=== PATIENT | male | born 1955 | race Caucasian/White ===

== ENCOUNTER → 2016-12-24 | Outpatient (CLI) | payer MEDICARE ==
[~2016-12-24] MED LIST: AMLO5TAB2 PO; FEXO60TA PO; GABA300C5 PO; HYDR25TA5 PO; LOVA1TAB47 PO; MS C60TA4 PO; MSIR15 PO; OXYC-360 PO; PRAV40TA2 PO; PROT40TA PO; SERT-129 PO; TEST2.5G TOPICAL; TESTOSTERONE CREAM TOP; ZITH500T PO
[2016-12-24 10:24] LABS: APTT (PATIENT) 29.2 SEC (24.3-30.1); PROTHROMBIN TIME - PATIENT 11.3 SEC (9.8-11.6)
[2016-12-24 10:27] LABS: BLOOD, URINE NEG (NEG); COMMENT (UR) CULT NOT INDICATED; CULTURE IF INDICATED CULT NOT INDICATED; GLUCOSE,URINE NEG (NEG); KETONE, URINE NEG (NEG); NITRITE,URINE NEG (NEG); PH, URINE 6.5 (5.0-8.5); URINE COLOR YELLOW (YELLW/STRAW)
[2016-12-24 10:38] LABS: HEMATOCRIT 58.5 % (39.0-51.0); MEAN CELL VOLUME 89.3 FL (80.0-100.0); MEAN CORPUSCULAR HGB CONC 33.6 % (32.0-36.0); PLATELET COUNT 187 TH/MM3 (150-450); RED BLOOD COUNT 6.56 MIL/MM3 (4.50-5.90); RED CELL DISTRIBUTION WIDTH 14.5 % (11.6-17.2); REVIEW FLAG FINAL; WHITE BLOOD COUNT 8.4 TH/MM3 (4.0-11.0)
[2016-12-24 12:21] LABS: BICARBONATE 31.2 MEQ/L (21.0-32.0); POTASSIUM 3.6 MEQ/L (3.5-5.1)
--- NOTE | 2016-12-28 09:15 | EKG ---
Date Performed: 12/24/2016 Time Performed: 09:55:56 PTAGE: 61 years EKG: Sinus rhythm BORDERLINE LEFT AXIS DEVIATION BORDERLINE ECG Compared to prior tracing no significant change DOCTOR: Stephane Bolton Interpretating Date/Time 12/28/2016 09:12:52
== END ==
LOC: CPRE 09:04
PROVIDERS: ATTEND Orthopaedic Surgery
DX: Z01.812 Encounter for preprocedural laboratory examination (principal); Z01.810 Encounter for preprocedural cardiovascular examination; M17.11 Unilateral primary osteoarthritis, right knee; I10 Essential (primary) hypertension; M79.609 Pain in unspecified limb; R94.31 Abnormal electrocardiogram [ECG] [EKG]
CPT/HCPCS: 36415; 80048; 81001; 85027; 85610; 85730; 93005

== ENCOUNTER → 2017-06-16 | Outpatient (CLI) | payer MEDICARE ==
[~2017-06-16] MED LIST changes: +ASPI81TA23 PO; -FEXO60TA PO; -LOVA1TAB47 PO; -MS C60TA4 PO; -OXYC-360 PO; -TESTOSTERONE CREAM TOP; -ZITH500T PO
== END ==
LOC: CPRE 08:49
PROVIDERS: ATTEND Orthopaedic Surgery
DX: M17.11 Unilateral primary osteoarthritis, right knee (principal); M79.609 Pain in unspecified limb; I10 Essential (primary) hypertension

== ENCOUNTER 2017-07-05 05:05 | Inpatient (IN) | payer MEDICARE ==
[~2017-07-05] VITALS: Ht 172.7 cm; Wt 97.3 kg
[2017-07-05] MEDS ORDERED: CHLORHEXIDINE GLUCONATE 4% SOLN 120 ML BTL TOPICAL SCH (05:30)
[2017-07-05] MEDS ORDERED: EXPAREL PERI-ARTICULAR INJECTION (TOTAL VOL. 100 ML) P-ARTICULR SCH ×2 (05:30)
[2017-07-05] MEDS ORDERED: TRANEXAMIC ACID INJ 975 MG in SODIUM CHLORIDE 0.9% INJ 100 ML IV SCH ×4 (05:30)
[2017-07-05] MEDS ORDERED: LACTATED RINGER'S 1000 ML IV PRN (05:30)
[2017-07-05] MEDS ORDERED: METOPROLOL TARTRATE 25 MG TAB PO PRN (05:30)
[2017-07-05] MEDS ORDERED: CHLORHEXIDINE GLUCONATE 2 % 1 PACK (2 CLOTHS) TOPICAL PRN (05:30)
[2017-07-05] MEDS ORDERED: SODIUM CHLORID 0.9% 500 ML IV PRN (05:30)
[2017-07-05] MEDS ORDERED: POVIDONE IODINE 5% (ANTISEPSIS KIT) 4 APPLICATIONS EACH NARE PRN (05:30)
[2017-07-05] MEDS ORDERED: ceFAZolin 2 GM PREMIX 50 ML IV SCH (05:30)
[2017-07-05] MEDS ORDERED: FAT EMULSION 20% INJ 0 ML ONE (05:40)
[2017-07-05 05:57] VITALS: PULSE 87
[2017-07-05] MEDS ORDERED: ACETAMINOPHEN 1000 MG/100 ML 100 ML IV ONE (06:26)
[2017-07-05] MEDS ORDERED: GENTAMICIN SULFATE 80 MG/2 ML VIAL ONE (06:26)
[2017-07-05] MEDS ORDERED: FAMOTIDINE 20 MG/2 ML VIAL ONE (06:26)
[2017-07-05] MEDS ORDERED: MIDAZOLAM HCL 5 MG/5 ML VIAL ONE (06:35)
[2017-07-05] MEDS ORDERED: BUPIVACAINE LIPOSOME PF 1.3% 20 ML VIAL ONE (06:36)
[2017-07-05] MEDS ORDERED: ZOLPIDEM TARTRATE 5 MG TAB PO PRN (06:45)
[2017-07-05] MEDS ORDERED: MAGNESIUM HYDROXIDE SUSP 30 ML CUP PO PRN (06:45)
[2017-07-05] MEDS ORDERED: MORPHINE SULFATE 15 MG TAB PO PRN (06:45)
--- NOTE | 2017-07-05 08:56 | PD.OP ---
Operative Report Date of Surgery: Jul 05, 2017 Preoperative Diagnosis: (1) Primary osteoarthritis of right knee Postoperative Diagnosis: (1) Primary osteoarthritis of right knee Procedure: Right total knee arthroplasty using [place] Triathlon prosthesis (uncemented) Anesthesia: General endotracheal with supplemental adductor canal block regional and local with Exparel Surgeon: Valentín Webber M.D. Structures Assembler(s): JACINTA Sheth Operation and Findings: Indications and Findings: This 62-year-old man has had a 9 year history of right knee pain with more recent increase in pain. This has been over the past 6 months. Previously he had arthroscopic surgery of the knee. More recent treatment has included analgesics, anti-inflammatory agents, activity modification, exercises, use of a brace and ambulatory aids. In spite of this, he has worsened so that his ambulation tolerance is very show short distance. His physical findings included severe medial pain and tenderness with crepitation on range of motion and medial laxity. There is some degenerative varum. Radiographic findings showed loss of articular cartilage to virtually [id number] in the medial compartment with lateral meniscus calcification and changes in the articular cartilage in the patellofemoral joint. Operative findings: There was severe osteoarthritis in the medial compartment with loss of articular cartilage to bone on bone, osteophytes, eburnation. There is also changes in the patellofemoral compartment which would be considered fairly significant with areas of cartilaginous delamination and irregularity. The lateral compartment had some minor changes. The prosthesis used was a [place] Triathlon prosthesis. The femur was a size 6 cruciate retaining uncemented. The tibial baseplate was a size 6 Tritanium with a 13 mm cruciate retaining X3 polyethylene spacer. The patella was a size 38 mm asymmetric Tritanium backed. The patient was brought to the clean-air operating suite after an adductor canal block regional had been performed. A spinal anesthetic was administered. The position was supine with a small bolster under the hip on the operative side. A pneumatic tourniquet was applied to the upper thigh. The lower extremity was then prepped with alcohol, Hibiclens and ChloraPrep and draped in the usual manner with the knee draped free. An appropriate timeout procedure was carried out. An incision was made from about 3 fingerbreadths above the superior medial pole of patella down the tibial tubercle on the medial side. The incision was deepened through the subcutaneous tissue to the retinacular structures which were exposed medially and laterally. A medial retinacular incision was then made from the superior middle pole of patella down the tibial tubercle and up into the quadriceps tendon splitting it longitudinally and the medial one third. The patella was reflected. The infrapatellar fat pad was debulked. The anterior cruciate ligament was excised. Medial and lateral meniscectomies were initiated. A fenestration was made in the distal femur for the intramedullary referencing guide. A fenestration was made in the proximal tibia for the intramedullary referencing guide. The distal femoral cutting guide and jig were then assembled for a 5, 8 mm cut. When this was in position, the cutting block was stabilized with pins. The jig was removed. The distal femoral cut was then completed with the oscillating saw. The sizing guide was then positioned in place along Whitesides line and the epicondylar axis and stabilized with pins. The femoral size was then determined with the sizing guide. The 4-in-1 cutting block was then positioned in place. Anterior and posterior cuts were made followed by posterior and anterior chamfer cuts taking care to prevent injury to ligamentous structures. Osteophytes were then trimmed from the distal femur. A bone plug was then placed into the fenestration of the distal femur. The proximal tibia was then exposed. The medial and lateral meniscectomies were completed. The proximal tibial cutting guide was then positioned in place and stabilized with a pin for rotation. The depth of cut was then verified with a stylus referencing from the predetermined side. The cutting block was stabilized with pins. The jig was removed. The depth of cut was then verified and adjusted appropriately with the use of the spacer block. The proximal tibial cut was then made with the oscillating saw taking care to prevent injury to neurovascular and ligamentous structures. Proximal tibial bone was removed. Local anesthetic was administered with Exparel in the posterior capsule. The tibial baseplate trial was then positioned in place. After verifying the appropriate size, the base plate trial was positioned in place along with its spacer. The trial femoral component was then impacted into place. The alignment was checked. The trial tibial baseplate was then pinned in place on the tibia. Attention was directed to the patella. The patella drill guide was positioned in place for the appropriate sized patella. Patellar drilling was then carried out. The trial patella was positioned in place. The knee was taken through a range of motion which was easily 0 extension to 145 of flexion. The patella trial was removed. The femoral drill holes were made. The femoral trial prosthesis was removed. The tibial spacer was removed. A bone plug was placed into the proximal tibia. The tibial punch was impacted through the proximal tibial punch guide. This was all removed followed by placement of the tibial drill guide. The tibial drill holes were then made. The guide was removed. The cut ends of bone were then cleaned with pulse lavage. The tibial baseplate was then impacted into place and seated appropriately. The spacer was inserted. The the femoral component was then impacted into place and seated appropriately. The patella component was then seated with the patellar vice and tightened appropriately. The knee was taken through a range of motion which was comparable to the previous range of motion with excellent stability in flexion and extension and appropriate patellofemoral tracking. The remainder of the Exparel was then injected throughout the knee as a local anesthetic. Drains were brought out the superior lateral aspect of the suprapatellar pouch. Wound closure then commenced using 0 Vicryl interrupted [id number] sutures for the capsular and fascial structures, 2-0 Vicryl interrupted simple sutures with buried knots for the subcutaneous tissues and 4- 0 Monocryl, tenuous subcuticular closure for the skin. The wound was then dressed with Steri-Strips followed by Optifoam silver impregnated dressing. Sterile soft roll with a cooling pad and Deepak bandage from the base of the toes to mid thigh were then applied. Patient was then transferred from the operating room to the recovery room in satisfactory condition having tolerated procedure well. Counts are correct. Specimens: None. Estimated blood loss: 150 mL Tess Webber MD ([place]) Jul 05, 2017 08:56
--- NOTE | 2017-07-05 08:57 | HHI.FF ---
Face to Face Verification Diagnosis: (1) Status post total right knee replacement Physical Therapy Gait training Knee: Total knee, Protocol: Right, Full weight bearing Right LE Weight Bearing: WB as tolerated Right LE Range of Motion: Active ROM (active, active-assisted and passive range of motion. Range of motion goal is 0 extension to 135 of flexion. Range of motion achieved in the operating room was 0 extension to 145 of flexion.) Nursing Nursing: Dressing changes Dressing Changes: Daily dressing change, Coverderm/Primapore Additional Instructions Daily dressing changes begin on postoperative day 7. Steri-Strips are to be removed on postoperative day 14. I have seen patient Delano Jones on 07/05/17. My clinical findings support the need for the requested home health care services because: Ltd mobility - disease progression Limited ability to care for self High risk of falls I certify that my clinical findings support that this patient is homebound because: Post-op weakness Unsteady gait/balance Unsafe to leave home unassisted Tess Webber MD ([place]) Jul 05, 2017 08:57
[2017-07-05] MEDS ORDERED: TESTOSTERONE 200 MG TOPICAL SCH (09:00)
[2017-07-05] MEDS: GABAPENTIN 300 MG CAP PO SCH ×2 (09:00→20:10)
[2017-07-05] MEDS: HYDROCHLOROTHIAZIDE 25 MG TAB PO SCH (09:00)
[2017-07-05] MEDS ORDERED: PANTOPRAZOLE SOD 40 MG DELAYED RELEASE TAB PO SCH (09:00)
[2017-07-05] MEDS ORDERED: ASPIRIN EC 81 MG TABEC PO SCH (09:00)
[2017-07-05] MEDS ORDERED: ONDANSETRON HCL 4 MG/2 ML VIAL IVP PRN (09:00)
[2017-07-05] MEDS: PRAVASTATIN SOD 40 MG TAB PO SCH (09:00)
[2017-07-05] MEDS ORDERED: Post-op Orders (for Pharmacy) XX ONE (09:00)
[2017-07-05] MEDS: amLODIPine BESYLATE 5 MG TAB PO SCH (09:00)
[2017-07-05] MEDS: SERTRALINE HCL 100 MG TAB PO SCH (09:00)
[2017-07-05] MEDS ORDERED: HYDR-3580 PO (09:01)
[2017-07-05] MEDS ORDERED: ECASA81 PO (09:01)
[2017-07-05] MEDS: LACTATED RINGER'S 1000 ML INJ 1,000 ML IV SCH ×2 (09:57→21:30)
--- NOTE | 2017-07-05 10:25 | RADRPT ---
EXAM DATE/TIME: 07/05/2017 09:30 [place] COMPARISON: No previous studies available for comparison. INDICATIONS : Post-op total right knee arthroplasty. MEDICAL HISTORY : None. SURGICAL HISTORY : None. ENCOUNTER: Initial ACUITY: 1 day PAIN SCORE: Non-responsive. LOCATION: Right knee FINDINGS: Postsurgical features of right knee arthroplasty. Arthroplasty components are in anatomic alignment. No significant acute bony fracture. Immediate postsurgical soft tissue features. CONCLUSION: 1. Status post right knee arthroplasty in anatomic alignment without significant acute bony fracture. Keron Amaro MD on July 05, 2017 at 10:23 Board Certified Radiologist. This report was verified electronically.
[2017-07-05] MEDS: KETOROLAC TROMETHAMINE 30 MG/ML (IVP) VIAL IVP SCH ×3 (10:30→19:03)
[2017-07-05] MEDS ORDERED: DO NOT ADM ANY ANTICOAGULANT DRUGS PRN (10:30)
[2017-07-05] MEDS ORDERED: *morphine SULFATE 4 MG/ML PERIprocedure ONLY ONE (10:45)
[2017-07-05] MEDS ORDERED: *ONDANSETRON 4 MG VIAL PERIprocedural Use ONLY ONE (10:45)
[2017-07-05] MEDS ORDERED: *PROMETHAZINE 25 MG/ML VIAL PERIprocedural use ONLY ONE (10:58)
[2017-07-05] MEDS ORDERED: SODIUM CHLORIDE 0.9% IV SCH (11:00)
[2017-07-05] MEDS ORDERED: TRANEXAMIC ACID IV SCH (11:00)
[2017-07-05] MEDS ORDERED: MORPHINE SULFATE 4 MG/ML INJ IV PUSH PRN (11:00)
[2017-07-05] MEDS ORDERED: DEXAMETHASONE SOD PHOS 4 MG/ML VIAL IV ONE (12:00)
[2017-07-05] MEDS ORDERED: ROCURONIUM INJ 50 MG/5 ML SYRINGE IV PUSH ONE (12:00)
[2017-07-05] MEDS ORDERED: LACTATED RINGER'S 1000 ML INJ 1,000 ML IV ONE (12:00)
[2017-07-05] MEDS ORDERED: LIDOCAINE HCL 1% PF 5 ML SYRINGE OTHER ONE (12:00)
[2017-07-05] MEDS ORDERED: PHENYLEPH/NS 1000 MCG/10 ML SYR IV ONE (12:00)
[2017-07-05] MEDS ORDERED: GLYCOPYRROLATE 1 MG/5 ML SYRINGE IV PUSH ONE (12:00)
[2017-07-05] MEDS ORDERED: NEOSTIGMINE 5 MG/5 ML SYRINGE IV PUSH ONE (12:00)
[2017-07-05] MEDS ORDERED: ePHEDrine/NS 25 MG/5 ML SYRINGE IV ONE (12:00)
[2017-07-05] MEDS ORDERED: PROPOFOL 200 MG/20 ML AMP IV ONE (12:00)
[2017-07-05] MEDS ORDERED: ONDANSETRON HCL 4 MG/2 ML VIAL IV ONE (12:00)
--- NOTE | 2017-07-05 14:15 | PD.CONS ---
HPI Service [facility] Hospitalists Consult Requested By Dr. 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 pylori treated, spondylolisthesis L5 to S1, hypertension, GERD, hyperlipidemia and osteoarthritis. Patient underwent a right total knee arthroplasty 07/05/[address] Webber. We've been consulted for assistance with postoperative medical management. Patient well and feels well at this time. Patient denies nausea, vomiting, shortness of breath or chest pain. Patient reports minimal postoperative pain and stiffness. Offers no specific complaints at this time Review of Systems Musculoskeletal: COMPLAINS OF: Joint pain, Stiffness Past Family Social History Past Medical History RSD s/p left hip surgery, testosterone deficiency, BPH, peptic ulcer disease H. pylori treated, spondylolisthesis L5 to S1, hypertension, GERD, hyperlipidemia and osteoarthritis Past Surgical History Lumbar fusion, panendoscopy, colonoscopy, left hip total arthroplasty Reported Medications Hydrocodone-Acetamin 7.5-325 (Hydrocodone/Acetaminophen) 7.5 Mg-325 Mg Tablet 1 Tab PO Q4H PRN Aspirin EC (Aspirin) 81 Mg Tabdr 81 Mg PO DAILY Testosterone Topical (Testosterone) 50 Mg/5 Gm Gel 200 Mg TOPICAL DAILY Hydrochlorothiazide 25 Mg Tab 25 Mg PO DAILY Gabapentin 300 Mg Cap 300 Mg PO BID Morphine IR (Morphine Sulfate) 15 Mg Tab 15 Mg PO Q8HR PRN Protonix (Pantoprazole Sodium) 40 Mg Tab 40 Mg PO EVERY OTHER DAY Amlodipine (Amlodipine Besylate) 5 Mg Tab 5 Mg PO DAILY Sertraline (Sertraline HCl) 100 Mg Tab 100 Mg PO DAILY Pravastatin 40 Mg Tab 40 Mg PO DAILY Allergies: Coded Allergies: No Known Allergies (Verified Allergy, Unknown, 07/05/17) Family History Father in his 60s secondary to prostate cancer also had an OH at 65 Social History Patient reports occasional EtOH use denies tobacco use now or in the past Physical Exam Vital Signs Vital Signs Date Time Temp Pulse Resp B/P (MAP) Pulse Ox O2 Delivery O2 Flow Rate FiO2 07/05/17 13:00 98.0 99 17 104/69 (81) 98 Nasal Cannula 2 07/05/17 12:00 94 18 101/63 (76) 98 Nasal Cannula 2 07/05/17 11:30 98 20 108/56 (73) 98 Nasal Cannula 2 07/05/17 11:00 90 18 100/55 (70) 98 Nasal Cannula 2 07/05/17 10:30 93 17 112/65 (81) 98 Nasal Cannula 2 07/05/17 10:15 94 13 117/65 (82) 98 Nasal Cannula 2 07/05/17 10:00 97 17 116/67 (83) 98 Nasal Cannula 2 07/05/17 09:45 98 18 115/66 (82) 96 Nasal Cannula 2 07/05/17 09:22 97.8 101 17 121/70 (87) 100 Simple Mask 6 07/05/17 05:57 87 07/05/17 05:57 97.9 90 20 127/83 (98) 96 Physical Exam GENERAL: This is a well-nourished, well-developed patient, in no apparent distress. SKIN: Postoperative dressing dry and intact HEAD: Atraumatic. Normocephalic. No temporal or scalp tenderness. EYES: Extraocular motions intact. No scleral icterus. No injection or drainage. CARDIOVASCULAR: Regular rate and rhythm RESPIRATORY: Clear to auscultation. Breath sounds equal bilaterally. GASTROINTESTINAL: Abdomen soft, non-tender, nondistended. MUSCULOSKELETAL: Extremities without clubbing, cyanosis, or edema. No joint tenderness, effusion, or edema noted. No calf tenderness. Negative Homans sign bilaterally. NEUROLOGICAL: Awake and alert. Motor and sensory grossly within normal limits, with exception of postoperative lower extremity. Normal speech. Imaging Last Impressions Knee X-Ray 07/05/17 0642 Signed Impressions: Service Date/Time: Wednesday, July 05, 2017 09:30 - CONCLUSION: 1. Status post right knee arthroplasty in anatomic alignment without significant acute bony fracture. Keron Amaro MD Assessment and Plan Problem List: (1) Primary osteoarthritis of right knee ICD Codes: M17.11 - Unilateral primary osteoarthritis, right knee Plan: Primary osteoarthritis of right knee Patient is status post right total knee arthroplasty 07/05/[address] Webber DVT prophylaxis will start Xarelto in AM [place] and Morphine as needed for acute pain Bowel regimen Hypertension continue patient's home Norvasc 5 mg daily and HCTZ 25 mg daily Hyperlipidemia continue patient on pravastatin GERD continue patient's home pantoprazole 40 mg daily Assessment and Plan Patient examined. Assessment and plan formulated with Roberta López PA-C. I agree with the above. right tka. medically stable. pain control/PT/IS. no almeida. dvt prophylaxis starting in AM. Roberta López Jul 05, 2017 14:15 Jalen Oliveros MD Jul 05, 2017 17:07
[2017-07-05 16:00] VITALS: BP 97/54; PULSE 104; RESP 18; TEMP 96.6; O2SAT 94
[2017-07-05 20:07] VITALS: BP 106/62; PULSE 89; RESP 18; TEMP 96.7; O2SAT 99
[2017-07-05] MEDS: ACETAMINOPHEN/HYDROcodone 325 MG/7.5 MG TAB PO PRN (20:17)
[2017-07-05 23:19] VITALS: BP 106/60; PULSE 90; RESP 18; TEMP 96.7; O2SAT 98
[2017-07-06] MEDS: KETOROLAC TROMETHAMINE 30 MG/ML (IVP) VIAL IVP SCH ×3 (00:30→12:45)
[2017-07-06] MEDS: ACETAMINOPHEN/HYDROcodone 325 MG/7.5 MG TAB PO PRN ×3 (02:15→10:31)
[2017-07-06 03:25] VITALS: BP 103/65; PULSE 88; RESP 18; TEMP 96.4; O2SAT 98
--- NOTE | 2017-07-06 07:04 | PD.ORT.PN ---
Subjective Post Op Day #: 1 Subjective Remarks He is doing well with the knee. He has minimal complaints with it but does have some complaints of swelling and numbness in his foot. He did well with therapy. Range of Motion -5 extension to 80 of flexion, limited by the dressing. Distance Walked Static standing, then 50 feet in the hallway, with therapy. Objective Vitals Vital Signs Date Time Temp Pulse Resp B/P (MAP) Pulse Ox O2 Delivery O2 Flow Rate FiO2 07/06/17 03:25 96.4 88 18 103/65 (78) 98 07/05/17 23:19 96.7 90 18 106/60 (75) 98 07/05/17 20:07 96.7 89 18 106/62 (77) 99 07/05/17 16:00 96.6 104 18 97/54 (68) 94 07/05/17 13:00 98.0 99 17 104/69 (81) 98 Nasal Cannula 2 07/05/17 12:00 94 18 101/63 (76) 98 Nasal Cannula 2 07/05/17 11:30 98 20 108/56 (73) 98 Nasal Cannula 2 07/05/17 11:00 90 18 100/55 (70) 98 Nasal Cannula 2 07/05/17 10:30 93 17 112/65 (81) 98 Nasal Cannula 2 07/05/17 10:15 94 13 117/65 (82) 98 Nasal Cannula 2 07/05/17 10:00 97 17 116/67 (83) 98 Nasal Cannula 2 07/05/17 09:45 98 18 115/66 (82) 96 Nasal Cannula 2 07/05/17 09:22 97.8 101 17 121/70 (87) 100 Simple Mask 6 I/O 07/05/17 07/05/17 07/05/17 07/06/17 07/06/17 07/06/17 07:00 15:00 23:00 07:00 15:00 23:00 Intake Total 2020 ml 820 ml 580 ml Output Total 550 ml 240 ml 690 ml Balance 1470 ml 580 ml -110 ml Intake Oral 120 ml 720 ml 480 ml IV Total 1900 ml 100 ml 100 ml Output Urine Total 300 ml 650 ml Drainage Total 100 ml 240 ml 40 ml Estimated Blood Loss 150 ml # Voids 3 # Bowel Movements 0 0 Imaging Last 72 hours Impressions Knee X-Ray 07/05/17 0642 Signed Impressions: Service Date/Time: Wednesday, July 05, 2017 09:30 - CONCLUSION: 1. Status post right knee arthroplasty in anatomic alignment without significant acute bony fracture. Keron Amaro MD Objective Remarks He is resting comfortably, supine in bed, in the [facility]. The dressing is dry and intact. The right lower extremity has an intact neurovascular status. The left lower extremity still has the foot drop and changes neurologically that he had preoperatively. Assessment & Plan Ortho Post Op Day #: 1 Problem List: (1) Primary osteoarthritis of right knee ICD Codes: M17.11 - Unilateral primary osteoarthritis, right knee Status: Resolved (2) Status post total right knee replacement ICD Codes: Z96.651 - Presence of right artificial knee joint Plan: Continue postop care and PT. Assessment and Plan Condition: Good. Orthopedically stable. DVT prophylaxis: Sequentials, TAMMIE stockings, aspirin 81 mg twice daily. Discharge plans: Home with home health care. An appointment was scheduled through the office. Prescriptions: [place] 7.5/325 I had discussed with his yesterday that consideration to bring his dropfoot brace to help him with ambulation. Tess Webber MD ([place]) Jul 06, 2017 07:04
--- NOTE | 2017-07-06 07:49 | HHI.DS ---
Discharge Summary Admission Date Jul 05, 2017 at 05:05 Discharge Date: Jul 06, 2017 Admitting Diagnosis Primary osteoarthritis, right knee. Diagnosis: (1) Primary osteoarthritis of right knee Diagnosis: Principal ICD Codes: M17.11 - Unilateral primary osteoarthritis, right knee Status: Resolved (2) Status post total right knee replacement Diagnosis: Principal ICD Codes: Z96.651 - Presence of right artificial knee joint (3) Reflex sympathetic dystrophy of left lower extremity Diagnosis: Secondary ICD Codes: G90.522 - Complex regional pain syndrome I of left lower limb Status: Chronic (4) Foot drop, left foot Diagnosis: Secondary ICD Codes: M21.372 - Foot drop, left foot Status: Chronic Procedures Right total knee arthroplasty with [place] Triathlon prosthesis (uncemented) on 07/05/2017. Brief History This is a 62 year old male patient has had long-standing right knee pain that has been nonresponsive to conservative measures as detailed in the history and physical examination. His physical findings show degenerative varum with medial laxity, palpable osteophytes and crepitation throughout the entire range. He walked with an antalgic gait. Radiographic findings showed severe osteoarthritis particularly in the medial compartment with osteophytes, eburnation and loss of articular cartilage to bone on bone. Imaging Last 72 hours Impressions Knee X-Ray 07/05/17 0642 Signed Impressions: Service Date/Time: Wednesday, July 05, 2017 09:30 - CONCLUSION: 1. Status post right knee arthroplasty in anatomic alignment without significant acute bony fracture. Keron Amaro MD PE at Discharge He is resting comfortably, supine in bed, in the [facility]. The dressing is dry and intact. The right lower extremity has an intact neurovascular status. The left lower extremity still has the foot drop and changes neurologically that he had preoperatively. Hospital Course The patient was admitted as noted above. The above noted operative procedure was carried out that day. Preoperatively prophylactic antibiotics were administered Ancef according to protocol. These were continued postoperatively. The patient also received tranexamic acid to help with hemostasis according to protocol. In the postanesthesia care unit a continuous passive motion device was initiated. Also initiated were mechanical methods of DVT prophylaxis in the form of TAMMIE stockings and sequentials. Physical therapy was initiated on the day of surgery. On postoperative day #1 physical therapy continued. The use of the continuous passive motion device continued. DVT prophylaxis with aspirin 81 mg twice daily was initiated at this time. The patient continued physical therapy throughout the hospitalization. The distance walked and range of motion improved throughout the hospitalization. The patient was discharged on postoperative day 1 with the disposition being to home with home health care. An appointment for follow-up was made prior to admission. Pt Condition on Discharge: Good Discharge Disposition: Disch w/ Home Health Serv Discharge Instructions Diet Instructions: As Tolerated, No Restrictions Activities You Can Perform: Full Weight Bearing, Shower Only-No Bath Activities to Avoid: Lifting/Bending, Strenuous Activity, Bathing, Driving Follow up Referrals: Orthopedics with Tess Webber MD ([place]) New Medications: Aspirin DR (Aspirin DR) 81 Mg Tabdr 81 MG PO BID for Prevent Blood Clot for 30 Days, #60 TAB Hydrocodone/Acetaminophen (Hydrocodone-Acetamin 7.5-325) 7.5 Mg-325 Mg Tablet 1 TAB PO Q4H PRN for PAIN SCALE 1 TO 10, #30 TAB Continued Medications: Amlodipine (Amlodipine) 5 Mg Tab 5 MG PO DAILY for Blood Pressure Management, #30 TAB 0 Refills Gabapentin (Gabapentin) 300 Mg Cap 300 MG PO BID, #60 CAP 0 Refills Hydrochlorothiazide (Hydrochlorothiazide) 25 Mg Tab 25 MG PO DAILY, #30 TAB 0 Refills Morphine IR (Morphine IR) 15 Mg Tab 15 MG PO Q8HR PRN for PAIN, TAB 0 Refills Pantoprazole (Protonix) 40 Mg Tab 40 MG PO EVERY OTHER DAY for Reflux, #30 TAB 0 Refills Pravastatin (Pravastatin) 40 Mg Tab 40 MG PO DAILY for Cholesterol Management, #30 TAB 0 Refills Sertraline (Sertraline) 100 Mg Tab 100 MG PO DAILY, #30 TAB 0 Refills Testosterone Topical (Testosterone Topical) 50 Mg/5 Gm Gel 200 MG TOPICAL DAILY for Hormone Replacement, #1 TUBE 0 Refills Discontinued Medications: Aspirin (Aspirin EC) 81 Mg Tabdr 81 MG PO DAILY, TAB 0 Refills Tess Webber MD ([place]) Jul 06, 2017 07:49
[2017-07-06 08:00] VITALS: BP 105/59; PULSE 90; RESP 17; TEMP 96.9; O2SAT 94
[2017-07-06] MEDS: SERTRALINE HCL 100 MG TAB PO SCH (08:48)
[2017-07-06] MEDS: GABAPENTIN 300 MG CAP PO SCH (08:48)
[2017-07-06] MEDS: PRAVASTATIN SOD 40 MG TAB PO SCH (08:49)
[2017-07-06] MEDS: HYDROCHLOROTHIAZIDE 25 MG TAB PO SCH (08:51)
[2017-07-06] MEDS: amLODIPine BESYLATE 5 MG TAB PO SCH (08:51)
[2017-07-06] MEDS ORDERED: TESTOSTERONE TOPICAL SCH (09:00)
[2017-07-06] MEDS ORDERED: RIVAROXABAN 10 MG TAB PO SCH (09:00)
[2017-07-06] MEDS ORDERED: ASPIRIN EC 81 MG TABEC PO SCH (09:00)
[2017-07-06 09:22] LABS: HEMATOCRIT 36.6 % (39.0-51.0); HEMOGLOBIN 12.7 GM/DL (13.0-17.0)
[2017-07-06] MEDS: LACTATED RINGER'S 1000 ML INJ 1,000 ML IV SCH (10:00)
[2017-07-06 12:28] VITALS: BP 103/63; PULSE 90; RESP 18; TEMP 96.6; O2SAT 93
[2017-07-06] MEDS ORDERED: DOCUSATE SODIUM 100 MG CAP PO SCH (21:00)
== END 2017-07-06 14:29 | disposition home health service (06) | DRG 470 ==
LOC: HSDI 05:05 → N06B 13:26
PROVIDERS: ADMIT Orthopaedic Surgery; ATTEND Orthopaedic Surgery
PROC: 0SRC0JA Replacement of Right Knee Joint with Synthetic Substitute, Uncemented, Open Approach (ICD-10-PCS; 2017-07-05)
PROC: 3E0T3BZ Introduction of Anesthetic Agent into Peripheral Nerves and Plexi, Percutaneous Approach (ICD-10-PCS; principal; 2017-07-05 06:48)
DX: M17.11 Unilateral primary osteoarthritis, right knee (principal); G90.522 Complex regional pain syndrome I of left lower limb; I10 Essential (primary) hypertension; M21.372 Foot drop, left foot; K21.9 Gastro-esophageal reflux disease without esophagitis; E78.5 Hyperlipidemia, unspecified; M43.16 Spondylolisthesis, lumbar region; M25.761 Osteophyte, right knee; Z87.11 Personal history of peptic ulcer disease; Z98.1 Arthrodesis status; Z79.899 Other long term (current) drug therapy
CPT/HCPCS: 36415; 73560; 85014; 85018; 86850; 86900; 86901; 86920; 94150; C1776; C9290; J0131; J0690; J1100; J1580; J1885; J2250; J2270; J2370; J2405; J2550; J2710; J3010; J7120